=== PATIENT | female | born 1935 | race Caucasian/White ===

== ENCOUNTER → 2019-06-27 | Outpatient (CLI) | payer MEDICARE, OTHER ==
[~2019-06-27] MED LIST: DEXL30CA3 PO; LETR2.5T7 PO; LORA-192 PO; MULT-1192; NEBI5 PO; RISP0.252 PO; [UNRECOGNIZED DRUG - CODE]; [UNRECOGNIZED DRUG - CODE] PO
== END | disposition home or self-care (01) ==
LOC: RADPV 14:17
PROVIDERS: ATTEND Legal Medicine
DX: I70.213 Atherosclerosis of native arteries of extremities with intermittent claudication, bilateral legs (principal); I82.423 Acute embolism and thrombosis of iliac vein, bilateral; R60.0 Localized edema; G95.19 Other vascular myelopathies
CPT/HCPCS: 93925; 93970